=== PATIENT | male | born 1960 | race Caucasian/White ===

== ENCOUNTER 2016-08-30 02:37 | Emergency (ER) | payer OTHER ==
[2016-08-30 02:46] VITALS: RESP 16; TEMP 100.2
[2016-08-30] MEDS ORDERED: OSELTAMIVIR PHOSPHATE 75 MG CAP PO ONE (03:19)
--- NOTE | 2016-08-30 03:20 | EDPHY ---
H & P Stated Complaint: cough, fever Time Seen by Provider: 08/30/16 02:50 HPI/ROS: HPI The patient presents with cough and fever for the last 1 day which have been getting progressively worse. He was unable to sleep tonight because he felt generally achy and was coughing. The cough sounds junky but is nonproductive. He has not had rhinorrhea or sore throat with this. He denies any sick contacts. He received a flu shot this year. REVIEW OF SYSTEMS Constitutional: No fever, no chills. Eyes: No discharge. ENT: No sore throat. Cardiovascular: No chest pain, no palpitations. Respiratory: No cough, no shortness of breath. Gastrointestinal: No abdominal pain, no vomiting. Genitourinary: No hematuria. Musculoskeletal: No back pain. Skin: No rashes. Neurological: No headache. PMHx: Sleep apnea, hypertension, psoriasis Soc Hx: Housed PHYSICAL General Appearance: Alert, no distress Eyes: Pupils equal and round no pallor or injection ENT, Mouth: Mucous membranes moist, posterior pharynx is erythematous without exudate Respiratory: There are no retractions, lungs are clear to auscultation Cardiovascular: Regular rate and rhythm Gastrointestinal: Abdomen is soft and non-tender, no masses, bowel sounds normal Neurological: A&O, moves all extremities Skin: Warm and dry, no rashes Musculoskeletal: Neck is supple non tender Extremities: symmetrical, full range of motion Psychiatric: Patient is oriented X 3, there is no agitation Source: Patient, Family - Personal History Current Tetanus/Diphtheria Vaccine: Unsure Current Tetanus Diphtheria and Acellular Pertussis (TDAP): Unsure - Medical/Surgical History Hx Asthma: No Hx Chronic Respiratory Disease: No Hx Diabetes: No Hx Cardiac Disease: No Hx Renal Disease: No Hx Cirrhosis: No Hx Alcoholism: No Hx HIV/AIDS: No Hx Splenectomy or Spleen Trauma: No Other PMH: l knee replacement/r shoulder surgery/bladder tumor, sleep apnea, HTN , psoriasis, inguinal hernia repair - Social History Smoking Status: Former smoker Constitutional: Initial Vital Signs Temperature (C) 37.9 C 08/30/16 02:43 Heart Rate 102 H 08/30/16 02:43 Respiratory Rate 16 08/30/16 02:43 Blood Pressure 141/83 H 08/30/16 02:43 O2 Sat (%) 91 L 08/30/16 02:43 O2 Delivery Mode Room Air Allergies/Adverse Reactions: No Known Allergies Allergy (Unverified 08/30/16 02:41) Home Medications: Medication Instructions Recorded Ramipril [Altace] 10 mg PO DAILY 11/14/14 Ascorbic Acid [Vitamin C 500 mg 1,000 mg PO DAILY 10/02/15 (*)] Chlorthalidone [Chlorthalidone 25 50 mg PO DAILY 10/02/15 mg (*)] Folic Acid [Folic Acid 1 MG (*)] 0.4 mg PO DAILY 10/02/15 Multivitamins [Multivitamin (*)] 1 each PO DAILY 10/02/15 [place]-3 Fatty Acids [Fish Oil 1000 1,000 mg PO DAILY 10/02/15 mg (*)] Acetaminophen [Tylenol 325mg (*)] 325 - 650 mg PO Q6 PRN #0 tab 10/15/15 Humira 08/30/16 Oseltamivir Phosphate [Tamiflu 75 75 mg PO BID #10 cap 08/30/16 mg (*)] Medical Decision Making - Diagnostics Imaging: Chest x-ray two view shows no infiltrate, interpreted by me, radiology interpretation is pending. Differential Diagnosis: This is a 56-year-old man who presents with fever and cough for the last 1 day. On exam, he is febrile, mildly tachycardic with normal blood pressure. Posterior pharynx is injected however lungs sound clear. Differential diagnosis includes influenza, upper respiratory tract infection, pneumonia. In the emergency room chest x-ray was obtained and shows no infiltrate. Rapid flu was positive for flu A. He was given a dose of Tamiflu here and a prescription for Tamiflu at home. He improved with ibuprofen and DuoNeb and thus will be discharged with albuterol inhaler. - Data Points Laboratory Results: 08/30/16 02:45 Influenza Typ A,B (DFA) POSITIVE FOR FLU A H (NEGATIVE) Medications Given: Discontinued Medications Albuterol Sulfate (Proventil Inh Prepack) 1 mdi TAKEHOME EDNOW ONE Stop: 08/30/16 04:06 Last Admin: 08/30/16 04:17 Dose: 1 mdi Albuterol/Ipratropium (Duoneb) 3 ml IH EDNOW ONE Stop: 08/30/16 03:23 Last Admin: 08/30/16 03:33 Dose: 3 ml Ibuprofen (Motrin) 600 mg PO EDNOW ONE Stop: 08/30/16 03:23 Last Admin: 08/30/16 03:33 Dose: 600 mg Oseltamivir Phosphate (Tamiflu) 75 mg PO EDNOW ONE Stop: 08/30/16 03:20 Last Admin: 08/30/16 03:33 Dose: 75 mg Departure - Departure Disposition: Home, Routine, Self-Care Clinical Impression: Influenza A Condition: Good Instructions: Albuterol (By mouth), Influenza (ED) Referrals: Clint Clinton MD [Primary Care Provider] - As per Instructions Prescriptions: Oseltamivir Phosphate [Tamiflu 75 mg (*)] 75 mg PO BID #10 cap
[2016-08-30] MEDS ORDERED: IBUPROFEN 600 MG TAB PO ONE (03:22)
[2016-08-30] MEDS ORDERED: IPRATROPIUM/ALBUTEROL 3 ML DEYVIAL IH ONE (03:22)
[2016-08-30] MEDS ORDERED: ALBUTEROL INH PREPACK MDI TAKEHOME ONE (04:05)
[2016-08-30 04:19] VITALS: BP 143/89; PULSE 100; O2SAT 93
== END 2016-08-30 04:19 | disposition home or self-care (01) ==
DX: J10.1 Influenza due to other identified influenza virus with other respiratory manifestations (principal); I10 Essential (primary) hypertension; Z87.891 Personal history of nicotine dependence

== ENCOUNTER 2017-05-24 10:15 | Inpatient (IN) | payer OTHER ==
[2017-06-21] MEDS ORDERED: ROPIVACAINE 0.2% 80 MG, EPINEPHrine 0.2 MG, KETOROLAC TROMETHAMINE 30 MG in SYRINGE 0 ML IU ONE (06:00)
[2017-06-21] MEDS ORDERED: TRANEXAMIC ACID 3,000 MG in NS 50 ML IRR ONE (06:00)
[2017-06-21] MEDS ORDERED: TRANEXAMIC ACID 3,000 MG/50 ML BAG IRR ONE (07:42)
[2017-06-21] MEDS ORDERED: FAMOTIDINE 20 MG TAB PO ONE (08:31)
[2017-06-21] MEDS ORDERED: ACETAMINOPHEN 325 MG TAB PO ONE (08:31)
[2017-06-21] MEDS ORDERED: ceFAZolin 2 GM/SWFI 2 GM/20 ML SYR IVP ONE (08:31)
[2017-06-21] MEDS ORDERED: DEXAMETHASONE 4 MG/ML VIAL IVP ONE (08:31)
[2017-06-21] MEDS ORDERED: LIDOCAINE 1% 2 ML INJ ID PRN (08:39)
[2017-06-21] MEDS ORDERED: LR 1,000 ML IV ONE (08:39)
--- NOTE | 2017-06-21 09:42 | PDHPUP ---
History & Physical Update H&P update statement: This history and physical update is based on an assessment of the patient which was completed after admission or registration (within 24 hours), but prior to the surgery/procedure. H&P update: H&P reviewed & patient examined, no change in patient's condition since H&P completed
--- NOTE | 2017-06-21 10:07 | PDANEPAE ---
ANE History of Present Illness 57 yo M w OA here for L BERNARDO ANE Past Medical History - Cardiovascular History Hx Hypertension: Yes Hx Arrhythmias: No Hx Chest Pain: No Hx Coronary Artery / Peripheral Vascular Disease: No Hx CHF / Valvular Disease: No Hx Palpitations: No - Pulmonary History Hx COPD: No Hx Asthma/Reactive Airway Disease: No Hx Recent Upper Respiratory Infection: No Hx Oxygen in Use at Home: No Hx Sleep Apnea: No Sleep Apnea Screening Result - Last Documented: Positive - Neurologic History Hx Cerebrovascular Accident: No Hx Seizures: No Hx Dementia: No - Endocrine History Hx Diabetes: No - Renal History Hx Renal Disorders: Yes Renal History Comment: BLADDER TUMOR REMOVED - Liver History Hx Hepatic Disorders: No - Neurological & Psychiatric Hx Hx Neurological and Psychiatric Disorders: No - Cancer History Hx Cancer: Yes Cancer History Comment: BLADDER - Congenital Disorder History Hx Congenital Disorders: No - GI History Hx Gastrointestinal Disorders: No - Other Health History Other Health History: OA arthritis-L hip. Psoriasis- bilat elbows tx w/Humira - Chronic Pain History Chronic Pain: Yes (L hip) - Surgical History Prior Surgeries: L knee (partial)replacement 4-16. R SHOULDER DISLOC. BLADDER TUMOR 2000. KNEE SCOPE L 2010. COLONOSCOPY ANE Review of Systems Review of Systems: - Exercise capacity Exercise capacity: >=4 METS METS (RN): 4 METS ANE Patient History - Allergies Allergies/Adverse Reactions: No Known Allergies Allergy (Verified 05/22/17 11:49) - Home Medications Home Medications: Chlorthalidone [Chlorthalidone 25 mg (*)] 50 mg PO DAILY 10/02/15 [Last Taken 07:00] Folic Acid [Folic Acid 1 MG (*)] 0.4 mg PO DAILY 10/02/15 [Last Taken 06/08/17] Multivitamins [Multivitamin (*)] 1 each PO DAILY 10/02/15 [Last Taken 06/08/17] [place]-3 Fatty Acids [Fish Oil 1000 mg (*)] 1,000 mg PO DAILY 10/02/15 [Last Taken 06/08/17] Adalimumab [Humira] 40 mg SQ LYNN 08/30/16 [Last Taken 06/10/17] Cholecalciferol Vit D3 [Vitamin D3 2000 units tab (OTC)] 2,000 units PO DAILY [Last Taken 06/08/17] Naproxen Sodium [Aleve 220 MG (*)] 220 mg PO BID PRN 05/15/17 [Last Taken ] Ramipril [Altace 5mg (*)] 10 mg PO DAILY 05/15/17 [Last Taken 06/20/17 07:00] - NPO status NPO Status: no food or drink >8 hours NPO Since - Liquids (Date): 06/20/17 NPO Since - Liquids (Time): 20:00 NPO Since - Solids (Date): 06/20/17 NPO Since - Solids (Time): 20:00 - Anes Hx Anes Hx: no prior problems - Smoking Hx Smoking Status: Former smoker - Alcohol Use Alcohol Use: Rarely - Family Anes Hx Family Anes Hx: none Family Hx Anesthesia Complications: NEG ANE Labs/Vital Signs - Vital Signs Blood Pressure: 124/79 Heart Rate: 65 Respiratory Rate: 16 O2 Sat (%): 94 Height: 185.42 cm Weight: 127.006 kg ANE Physical Exam - Airway Neck exam: FROM Mallampati Score: Class 2 Mouth exam: normal dental/mouth exam - Pulmonary Pulmonary: no respiratory distress, clear to auscultation - Cardiovascular Cardiovascular: regular rate and rhythym, no murmur, rub, or gallop - ASA Status ASA Status: II ANE Anesthesia Plan Anesthesia Plan: GA with mask, spinal Total IV Anesthesia: Yes
[2017-06-21] MEDS ORDERED: MIDAZOLAM 2 MG/2 ML VIAL IVP ONE (10:08)
[2017-06-21] MEDS ORDERED: PROPOFOL/EMULSION 500 MG/50 ML BOTTLE IV ONE ×2 (10:16→11:05)
[2017-06-21] MEDS ORDERED: OXYCODONE/APAP 5/325 TAB PO PRN (11:44)
[2017-06-21] MEDS ORDERED: ONDANSETRON 4 MG/2 ML VIAL IVP PRN ×2 (11:44→12:05)
[2017-06-21] MEDS ORDERED: HYDROCODONE/APAP 5/325 TAB PO PRN (11:44)
[2017-06-21] MEDS ORDERED: ACETAMINOPHEN 500 MG TAB PO PRN (11:44)
[2017-06-21] MEDS ORDERED: fentaNYL 100 MCG/2 ML INJ IVP PRN (11:44)
[2017-06-21] MEDS ORDERED: NALOXONE HCL 0.4 MG/ML INJ IVP PRN (11:44)
[2017-06-21] MEDS ORDERED: HYDROmorphONE/DILAUDID 1 MG/ML INJ IVP PRN (11:44)
[2017-06-21] MEDS ORDERED: METOCLOPRAMIDE 10 MG/2 ML VIAL IVP PRN (12:05)
[2017-06-21] MEDS ORDERED: PROMETHAZINE HCL 25 MG/ML INJ IVP PRN (12:05)
[2017-06-21] MEDS ORDERED: LACTULOSE 20 GM/30 ML UDCUP PO PRN (12:05)
[2017-06-21] MEDS ORDERED: PROMETHAZINE HCL 25 MG SUPPR PR PRN (12:05)
[2017-06-21] MEDS ORDERED: DIPHENOXYLATE/ATROPINE LOMOTIL 1 TAB PO PRN (12:05)
[2017-06-21] MEDS ORDERED: ONDANSETRON DISINTEGRATING 4 MG TAB PO PRN (12:05)
[2017-06-21] MEDS ORDERED: POLYETHYLENE GLYCOL 3350 17 GM PKT PO PRN (12:05)
[2017-06-21] MEDS ORDERED: CYCLOBENZAPRINE 10 MG TAB PO PRN (12:05)
[2017-06-21] MEDS ORDERED: TEMAZEPAM 15 MG CAP PO PRN (12:05)
[2017-06-21] MEDS ORDERED: diphenhydrAMINE 25 MG CAP PO PRN (12:05)
[2017-06-21] MEDS ORDERED: MAGNESIUM HYDROXIDE 30 ML UDCUP PO PRN (12:05)
[2017-06-21] MEDS ORDERED: BISACODYL 10 MG SUPP PR PRN (12:05)
--- NOTE | 2017-06-21 12:08 | POSTOPPROG ---
Post Op Note Date of Operation: 06/21/17 Surgeon: Alexsandra Trammell Senior Research Analyst: josr trammell Anesthesiologist: dr. noyola Anesthesia: Spinal Pre-op Diagnosis: L hip OA Post-op Diagnosis: same Indication: left hip pain due to OA that failed conservative measures Procedure: L BERNARDO ant approach Findings: severe hip OA Inf/Abcess present in the surg proc area at time of surgery?: No EBL: 100-500
[2017-06-21] MEDS ORDERED: LR 1,000 ML IV SCH (12:30)
[2017-06-21] MEDS ORDERED: OXYCODONE/APAP 5/325 TAB ONE (14:28)
[2017-06-21] MEDS: oxyCODONE IR 5 MG TAB PO PRN ×3 (15:40→21:44)
[2017-06-21 15:46] VITALS: RESP 16
[2017-06-21] MEDS: ACETAMINOPHEN 325 MG TAB PO SCH ×2 (17:04→23:44)
[2017-06-21] MEDS: ceFAZolin 2 GM/DEXTROSE 100 ML IV SCH (19:32)
[2017-06-21] MEDS: FAMOTIDINE 20 MG TAB PO SCH (20:46)
[2017-06-21] MEDS: ASPIRIN 81 MG CHEWABLE TAB PO SCH (20:46)
[2017-06-21] MEDS: SENNOSIDES/DOCUSATE SODIUM TAB PO SCH (20:46)
[2017-06-21] MEDS ORDERED: ASPIRIN 325 MG TAB PO SCH (21:00)
[2017-06-22] MEDS: ceFAZolin 2 GM/DEXTROSE 100 ML IV SCH (04:21)
[2017-06-22] MEDS: oxyCODONE IR 5 MG TAB PO PRN ×2 (04:22→07:55)
[2017-06-22] MEDS: ACETAMINOPHEN 325 MG TAB PO SCH (05:14)
[2017-06-22 05:46] LABS: HEMATOCRIT 40.3 % (40.0-51.0); HEMOGLOBIN 14.3 g/dL (13.7-17.5)
--- NOTE | 2017-06-22 06:46 | GOP ---
[f rep st] OPERATIVE REPORT DATE OF OPERATION: 06/21/2017 SURGEON: Trini Greco MD SEWER BUILDER: AWA Lainez. ANESTHESIA: Spinal. PREOPERATIVE DIAGNOSIS: Left hip osteoarthritis. POSTOPERATIVE DIAGNOSIS: Left hip osteoarthritis. PROCEDURE PERFORMED: Total hip arthroplasty with x-ray. FINDINGS: ESTIMATED BLOOD LOSS: 300cc IMPLANTS: Accolade II size 4 at 127. The acetabular component is a 56mm Tritanium. The liner is a Trident X3 36mm. The head is a Biolox Delta 36mm - 2.5. INDICATIONS: The patient has progressively worsening arthritis of the hip which has failed medical management. The patient understands the treatment options including continued non-operative care and has selected surgical intervention. The patient has decided to undergo total hip arthroplasty via the direct anterior approach, understanding the risks of the procedure including , but not limited to, neurovascular injury, infection, persistent pain, component wear and loosening, deep venous thrombosis, pulmonary embolism, limb length inequality, hip instability (including dislocation), and intra-operative fractures. DESCRIPTION OF PROCEDURE: After proper identification of the patient including verification and marking the surgical site, the patient was brought to the operating room and placed in the supine position. All bony prominences were well padded. Anesthesia was induced without complication and intravenous prophylactic antibiotics were administered prior to skin incision. The operative leg was placed in the Trumpf Arch table extension and the well leg in a Yellofin leg lopez. The patient was prepped and draped in the usual sterile fashion. The C-arm was draped for intra-operative fluoroscopy to check acetabular position, femoral component position including leg length and femoral offset. Attention was then drawn to surgical exposure of the hip. An incision was made with a #10 Bard Sergey blade starting 3 cm lateral and 3 cm distal to the anterior superior iliac spine measuring 8-10 cm and coursing distally toward the greater trochanter. The skin and subcutaneous tissues were divided sharply down to the fascia april. The fascia april was incised in line with the skin incision exposing the underlying tensor fascia april muscle. The muscle was bluntly elevated from the fascia and the first extracapsular Cobra retractor was placed laterally at the junction of the superior femoral neck and greater trochanter. The lateral femoral circumflex vessels were identified, cauterized , and divided with the Aquamantys bipolar cautery. The deep investing fascia of the TFL was divided to allow proper mobilization of the muscle preventing damage during the retraction. The reflected head of the rectus femoris muscle was elevated off the anterior hip capsule and a medial Cobra retractor was placed just proximal to the lesser trochanter. The anterior capsulotomy was made sharply from the superolateral acetabulum to the saddle junction of the superior femoral neck and greater trochanter, then coursing inferomedial towards the lesser trochanter. The retractors were then placed in the intracapsular position for femoral neck osteotomy. Corresponding to pre-operative templating, the osteotomy was made with the oscillating saw carefully protecting the greater trochanter and soft tissues. The femoral head was removed from the acetabulum with a corkscrew and confirmed to be severely arthritic with exposed bone, deformity and osteophytes. Similar findings were confirmed in the acetabulum. The Arch table extension was then placed in 40 degrees external rotation. Attention was then drawn to the acetabular preparation. After placement of the anterior and posterior Cobra retractors outside the labrum and intracapsular, the circumferential labrum was removed sharply. The foveal contents were then removed and hemostasis obtained with cautery. The first reamer selected was sized using the removed femoral head. Reaming began with medialization and then commenced in 2 mm increments at 45 degrees of abduction and 15 degrees of anteversion using fluoroscopic navigation. Reaming ceased 1 mm less than the definitive acetabular component and corresponded to the pre-operative templating. The final acetabular component was inserted using fluoroscopy to achieve proper orientation yielding excellent purchase and stability in the acetabulum. The final acetabular liner was then placed and its seating confirmed. Attention was then turned to the femur. The Arch table extension was placed in extension and adduction, delivering the osteotomized femoral neck into the wound. A 2-pronged femoral elevator was placed at the calcar and another at the tip of the greater trochanter. The posterolateral capsule was released with cautery allowing mobilization of the femur lateral and anterior for preparation. The external rotators were visualized and preserved. A curette and rongeur were used to open the starting point for broaching. Serial broaching started with the #0 broach and ended with the broach that exhibited excellent fit in the proximal femur. A change in pitch during mallet strikes was accompanied by the inability to advance the broach any further. The trial reduction was performed and fluoroscopic navigation was utilized to check limb length. Adjustments were made to equalize limb length accordingly. After the final trials were accepted they were removed and the wound was copiously lavaged. The femoral component was seated to the same depth as the final broach and the femoral head was impacted onto the clean trunnion. The hip was then reduced for the final time and once more fluoroscopy was used to check that limb length equality was achieved. The wound was irrigated and closed in layers, the fascia april with 2-0 Quill, the subcutaneous tissue with 2-0 Quill, and the skin with Dermabond. Sterile dressings were applied. Final sharps and sponge counts were accurate. The patient was then transferred to a hospital bed and brought to the recovery room in stable condition. /[id number]/MODL MTDD
[2017-06-22 07:53] VITALS: BP 114/71; PULSE 73; TEMP 97.9; O2SAT 97
[2017-06-22] MEDS: SENNOSIDES/DOCUSATE SODIUM TAB PO SCH (07:55)
[2017-06-22] MEDS: ASPIRIN 81 MG CHEWABLE TAB PO SCH (07:55)
[2017-06-22] MEDS: FAMOTIDINE 20 MG TAB PO SCH (07:55)
[2017-06-22] MEDS ORDERED: CHLORTHALIDONE 25 MG TAB PO SCH (09:00)
[2017-06-22] MEDS ORDERED: RAMIPRIL 5 MG CAP PO SCH (09:00)
--- NOTE | 2017-06-22 11:51 | ASDISCHSUM ---
Discharge Information Plan Status:Home with No Needs Medically Cleared to Leave: Discharge Date:06/22/2017 10:36 AM CM D/C Disposition:Home, Routine, Self-Care ADT D/C Disposition:Home, Routine, Self-Care Projected Discharge Date:06/22/2017 10:36 AM Transportation at D/C: Discharge Delay Reason: Follow-Up Date:06/22/2017 10:36 AM Discharge Slot: Final Diagnosis: Placement Information Patient Contact Information Contact Name:GURPREET Relationship: Address:[address] City:[facility] Phone: [facility]/Zip Code:[place] [address] Email: Financial Information Financial Class:HMO and PPO Plans Primary Plan Desc:[employer]AT[employer]IORITY PPO HMO Primary Plan Number:[id number] Secondary Plan Desc: Secondary Plan Number: Assessment Information Intervention Information
--- NOTE | 2017-06-22 19:42 | SOAPPROG ---
SOAP Progress Note Assessment/Plan: Assessment: Nicolás is doing well today s/p L BERNARDO pain is well controlled anemia: level expected initially postop, asymptomatic VTE PPX: recommend ASA 81 mg BID for 4 weeks D/c planning: d/c to home today Plan: 06/22/17 12:41 Subjective: Nicolás is doing well today, denies SOB, chest pain and N/V Objective: Vital Signs Temp Pulse Resp BP Pulse Ox 36.6 C 73 16 114/71 97 06/22/17 07:51 06/22/17 07:51 06/22/17 07:51 06/22/17 07:54 06/22/17 07:51 Laboratory Results 06/22/17 05:15 06/21/17 06/22/17 06/23/17 05:59 05:59 05:59 Intake Total 3177 Output Total 450 Balance 2727 LLE: incision dressing is clean and dry, NVI, +pf/df ICD10 Worksheet Patient Problems: Problems Problem Status Onset Primary localized osteoarthritis of left hip Acute Primary localized osteoarthritis of left knee Acute
== END 2017-06-22 10:36 | disposition home or self-care (01) | DRG 470 ==
LOC: F3N 06-21 08:20
PROVIDERS: ADMIT Orthopaedic Surgery; ATTEND Orthopaedic Surgery
PROC: 0SRB04A Replacement of Left Hip Joint with Ceramic on Polyethylene Synthetic Substitute, Uncemented, Open Approach (ICD-10-PCS; principal; 2017-06-21 10:15)
DX: M16.12 Unilateral primary osteoarthritis, left hip (principal); I10 Essential (primary) hypertension; L40.52 Psoriatic arthritis mutilans; Z85.51 Personal history of malignant neoplasm of bladder
CPT/HCPCS: 97161-GP; 97165-GO; J0171; J0690; J1100; J1885; J2250; J2704; J2795